=== PATIENT | female | born 1970 | race Caucasian/White ===

== ENCOUNTER 2018-09-01 06:50 | Day surgery (SDC) | payer BC ==
[~2018-09-01 06:50] MED LIST: Lactated Ringers 1,000 ML IV SCH
[2018-09-01] MEDS ORDERED: Midazolam 1 MG/ML 2 ML SDV IV ONE (06:51)
[2018-09-01] MEDS ORDERED: Propofol 200 MG/20 ML SDV IV ONE (06:51)
--- NOTE | 2018-09-01 08:20 | PREOP ---
ADMISSION DATE: 09/01/2018 CHIEF COMPLAINT: Need for colon cancer screening. HISTORY OF PRESENT ILLNESS: This is a 48-year-old white female, who presents for her screening colonoscopy. She has no complaints and has no issues. This is her first scope. She has a history of colon cancer with her grandparent. SOCIAL HISTORY: The patient is . Does not smoke. Drinks an occasional beer. PAST MEDICAL HISTORY: Significant for some reflux disease. PAST SURGICAL HISTORY: Significant for spine surgery in 2010. CURRENT MEDICATIONS: 1. A probiotic, she takes by mouth. 2. Systane 0.6% ophthalmic solution one drop in each eye daily or on an as needed basis. 3. Prilosec 20 mg daily. FAMILY HISTORY: Significant for hypertension, hypercholesterolemia, Alzheimer disease, prostate cancer, and colon cancer in a grandparent. ALLERGIES: The patient reports no known allergies. REVIEW OF SYSTEMS: The patient denies any constitutional, HEENT issues, respiratory, cardiovascular, gastrointestinal, genitourinary, musculoskeletal, or neurologic. PHYSICAL EXAMINATION: GENERAL: This is a well-developed, well-nourished female, appearing in no acute distress. VITAL SIGNS: Stable. Afebrile. HEENT: Grossly within normal limits. LUNGS: Clear to auscultation. HEART: Had a regular rate and rhythm. ABDOMEN: Soft, nontender. ASSESSMENT: A 48-year-old white female, presenting for initial screening colonoscopy. PLAN: C-scope. Procedure and risks explained to the patient to include bleeding, perforation, and infection. The patient expresses understanding and asked us to proceed. /[id number] /MODL
--- NOTE | 2018-09-01 08:22 | PCM.OPNOTE ---
- General Post-Op/Procedure Note Date of Surgery/Procedure: 09/01/18 Operative Procedure(s): c scope Findings: nl exam Pre Op Diagnosis: screening Post-Op Diagnosis: nl exam Anesthesia Technique: MAC Primary Surgeon: Todd Barbosa Anesthesia Provider: Gladys Waters Pathology: none Complications: None Condition: Good Free Text/Narrative:: see dictation
[2018-09-01 09:16] VITALS: BP 121/84
--- NOTE | 2018-09-01 09:18 | OR ---
DATE OF OPERATION: 09/01/2018 SURGEON: Todd Barbosa MD PROCEDURE PERFORMED: Colonoscopy. PREOPERATIVE DIAGNOSIS: Need for screening C-scope. POSTOPERATIVE DIAGNOSIS: Normal exam. INDICATIONS FOR PROCEDURE: This is a 48-year-old white female who presents for initial screening colonoscopy. DESCRIPTION OF OPERATION: After an excellent IV sedation was administered, digital rectal exam was performed. No marked abnormality was noted. Flexible colonoscope was inserted and advanced to the cecum. Prep was excellent. The following findings were noted. Ascending colon, unremarkable. Transverse colon, unremarkable. Descending colon, unremarkable. Sigmoid and rectum, unremarkable. Colon was deflated as the scope was removed. The patient tolerated the procedure well and was taken to recovery room in good condition. RECOMMENDATIONS: Repeat scope in 10 years. /[id number] KATHRIN/DANTE
== END 2018-09-01 09:16 | disposition home or self-care (01) ==
LOC: FB.SDS 06:50
PROVIDERS: ATTEND Surgery
DX: Z12.11 Encounter for screening for malignant neoplasm of colon (principal); K21.9 Gastro-esophageal reflux disease without esophagitis; Z80.0 Family history of malignant neoplasm of digestive organs
CPT/HCPCS: J2250; J2704; J7120